=== PATIENT | female | born 1995 | race Caucasian/White ===

== ENCOUNTER 2022-07-09 22:06 | Emergency (ER) | payer OTHER, SELFPAY ==
[2022-07-09 22:06] VITALS: BP 127/72; PULSE 86; RESP 16; TEMP 36.6; O2SAT 99; BMI 26.6
--- NOTE | 2022-07-09 22:17 | ED.VIS.FEGU ---
HPI HPI - Female History of Present Illness Chief Complaint: PFSH PFSH Medical History no medical history Allergy/AdvReac Type Severity Reaction Status Date / Time No Known Allergies Allergy Verified 07/09/22 22:08 Family History no significant family his Surgical History no surgical history Social History Smoking Status: Never smoker EXAM Physical Exam Const Vital Signs: 07/09/22 22:06 Temperature 97.8 F Temperature Source Temporal Pulse Rate 86 Respiratory Rate 16 Blood Pressure 127/72 H Blood Pressure Mean 90 Pulse Ox 99 Oxygen Delivery Method Room Air MDM MDM MDM Narrative Medical decision making narrative: Patient has slight hematuria, no obvious urine infection but since she first came in she now has severe flank pain that sharp and stabbing and more vomiting. She tells me that the pain is colicky that at times it is very minimal like when I first saw her and then he gets really intense. Because of this I think she likely has a kidney stone. I try to give her opiate analgesics she is refusing any opiate analgesics due to concern for the baby, I believe it is reasonable to refuse opiates however she is in quite a bit of pain with a kidney stone I try to offer her oral opiates or Tylenol she is refusing these right now. I told her she would have to be transferred since there is no coverage here, they are from [place] at [place] where they get her OB care and they do not want an ambulance drive, she wants her to drive her there she does not want to get transferred today we will stop by her parents house here in town and then go to [place]. I warned him that there could be a waiting in the waiting room I told him that she could have quite a bit of pain in the car ride and she may stop and go to another emergency department even before she gets to [place] she understands all these risks and wants to be discharged. They asked about an ultrasound although I do not have an cmm technician at this time I am reluctant to do a CAT scan due to the risk of radiation. However I do believe she has a kidney stone currently there is no infection, I did warn her to head straight to her hospital if that is her choice, again she is refusing transfer by us. Lab Data Labs: Laboratory Results - last 24 hr 07/09/22 07/09/22 07/09/22 22:25 22:37 22:37 WBC 10.7 RBC 4.03 L Hgb 12.5 Hct 36.9 L MCV 91.6 MCH 31.0 MCHC 33.9 RDW Std Deviation 43.4 RDW Coeff of Rafi 13.0 Plt Count 216 MPV 9.8 Immature Gran % (Auto) 0.300 Neut % (Auto) 78.8 H Lymph % (Auto) 13.[address] [place] % (Auto) 7.1 Eos % (Auto) 0.2 Baso % (Auto) 0.4 Absolute Neuts (auto) 8.4 H Absolute Lymphs (auto) 1.41 Nucleated RBC % 0 Sodium 139 Potassium 3.2 L Chloride 106 Carbon Dioxide 25.0 Anion Gap 8 BUN 6 L Creatinine 0.69 Estim Creat Clear Calc 114.73 Est GFR (MDRD) Af Amer 130 Est GFR (MDRD) Non-Af 108 BUN/Creatinine Ratio 8.7 L Glucose 99 Calcium 9.1 Total Bilirubin 0.50 AST 18 ALT 24 Alkaline Phosphatase 44 L Total Protein 7.0 Albumin 3.1 L Globulin 3.9 Albumin/Globulin Ratio 0.8 L Urine Color Yellow Urine Clarity Sl. Cloudy Urine pH 6.5 Ur Specific [place] 1.015 Urine Protein 15 H Urine Glucose (UA) Normal Urine Ketones Negative Urine Occult Blood 50 H Urine Nitrite Negative Urine Bilirubin Negative Urine Urobilinogen Normal Ur Leukocyte Esterase 25 H Urine RBC 5-10 SEEN Urine WBC 0-5 SEEN Ur Squamous Epith Cells 0-5 SEEN Amorphous Sediment 2+ Urine Bacteria 2+ Fine Granular Casts 0-5 SEEN Urine Mucus 0 SEEN Discharge Plan Triage Chief Complaint: ED Provider: José Antonio Loza Dx/Rx/DC Orders Clinical Impression: Hematuria, Acute flank pain Instructions: Back Pain During Primary Care Provider: Min Michelle Referrals: [facility] Doctor,Out of [Non-Staff] - Activity Restrictions/Additional Instructions: You likely have a kidney stone. You are still in a lot of pain but you do not want any opiate analgesics. You are not allowed to take Motrin Toradol or any other NSAIDs during . You do not want to be transferred to [place] by us, you chose to take your own vehicle, if you choose this which is not advised by me, make sure your takes you there right away. Disposition Disposition: Home, Self Care
[2022-07-09 22:30] LABS: Mucous, Urine 0 SEEN /hpf (<or=2+)
[2022-07-09 22:31] LABS: Color, Urine Yellow (Yellow); Glucose, Dipstick Normal (Normal); Ketone-Dipstick Negative (Negative); Leukocyte Esterase-Dipstick 25 /ul (Negative); Nitrite-Dipstick Negative (Negative); Occult Blood-Urine 50 /ul (Negative); Protein-Dipstick 15 mg/dl (Negative); Specific Gravity, Urine 1.015 (1.002-1.030); Urine Bilirubin Dipstick Negative (Negative); Urine Clarity Sl. Cloudy (Clear); Urine Urobilinogen Normal (Normal); Urine pH 6.5 (5.0 - 8.0)
[2022-07-09] MEDS: Ondansetron 4 MG/2 ML Vial IV (22:34)
[2022-07-09] MEDS: 0.9% Normal Saline 1,000 ML 1000 ML IV (22:35)
[2022-07-09 22:42] LABS: Amorphous Sediment 2+; Bacteria 2+ /hpf (None Seen); Fine Granular Cast- Urine 0-5 SEEN /lpf (0-5); Red Blood Cells-Urine 5-10 SEEN /hpf (0-5); Squamous Epithelial Cells - UA 0-5 SEEN /hpf (5-10); White Blood Cells 0-5 SEEN /hpf (0-5)
[2022-07-09 22:46] LABS: Absolute Lymphocyte Count 1.41 X10^3/uL (0.83-4.51); Absolute Neutrophil Count 8.4 X10^3/uL (2.0-7.7); Basophil# 0.04 X10^3/uL; Basophil% 0.4 % (0-1); Eosinophil# 0.02 X10^3/uL; Eosinophils% 0.2 % (0-5); Hematocrit 36.9 % (37-47); Hemoglobin 12.5 g/dL (12.0-15.0); Lymphocyte # 1.41 X10^3/ul (0.83-4.51); Lymphocyte % 13.2 % (19-41); Mean Corp Hgb Conc 33.9 g/dL (32-36); Mean Corpuscular Volume 91.6 fL (81-99); Mean Platelet Vol. 9.8 fl (6.2-12.0); Monocyte# 0.76 X10^3/uL; Monocyte% 7.1 % (0-10); NRBC Flagged by Analyzer 0 % (0-5); Neutrophil # 8.44 X10^3/uL (2.7-7.7); Neutrophil % 78.8 % (47-70); Platelet Count 216 K/mm3 (150-450); RBC Distribution Width SD 43.4 fl (35.1-43.9); Red Blood Count 4.03 M/mm3 (4.2-5.4); White Blood Count 10.7 K/mm3 (4.4-11.0)
[2022-07-09 23:02] LABS: ALB/GLOB Ratio 0.8 RATIO (0.9-2.4); AST(SGOT) 18 U/L (15-37); Alanine Aminotransfer ALT/SGPT 24 U/L (13-56); Albumin, Serum 3.1 g/dL (3.2-5.0); Alkaline Phosphatase 44 U/L (45-117); Anion Gap 8 (5-15); BUN 6 mg/dL (7-18); BUN/Creat Ratio 8.7 RATIO (10-20); Calcium,Total 9.1 mg/dL (8.5-10.1); Chloride 106 mmol/L (98-107); Creatinine, Serum 0.69 mg/dL (0.55-1.02); EST Glomerular Filtration Rate 108 mL/min (>60); Est Glom Filt Rate - Afr Amer 130 mL/min (>60); Estimated Creatinine Clearance 114.73 ml/min; Globulin 3.9 g/dL (2.2-4.2); Glucose 99 mg/dL (74-106); Potassium 3.2 mmol/L (3.5-5.1); Sodium Level 139 mmol/L (136-145)
[2022-07-10] MEDS: Ceftriaxone 1 GM/50 ML BAG IV (00:13)
[2022-07-10 00:48] VITALS: RESP 19; O2SAT 98
== END 2022-07-10 00:49 | disposition home or self-care (01) ==
PROVIDERS: Emergency Provider Emergency Medicine; Visit Provider Emergency Medicine
DX: R31.9 Hematuria, unspecified (principal); R10.9 Unspecified abdominal pain; R11.10 Vomiting, unspecified
CPT/HCPCS: 80053; 81001; 85025; 99283; J7030; A4216; J2405